=== PATIENT | female | born 1970 | race Caucasian/White ===

== ENCOUNTER 2018-02-13 11:22 | Emergency (ER) | payer OTHER ==
[2018-02-13 12:22] LABS: PLATELET COUNT 157 10^3/uL (150-400)
--- NOTE | 2018-02-13 12:43 | EDPHY ---
H & P Stated Complaint: CP last couple weeks, facial numbness and right arm pain starting today Time Seen by Provider: 02/13/18 11:53 HPI/ROS: Chief Complaint: Chest pain HPI: 47-year-old woman presenting with concerns about intermittent chest tightness she has been having for the last couple weeks. Patient is describing pain in the right upper chest. She is associated primarily with stress. It is nonradiating. At worst is about a 4/10. She followed up with primary care physician 2 days ago and declined any further testing at that time. She is considering an outpatient stress test. Patient states she bicycles usually 10 hr a week. Symptoms are not brought on by exertion. She does have increased stressors in her life. No leg pain or swelling. No recent travel. 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 No fevers or chills. No cough. No palpitations. No other infective symptoms. Pain is not pleuritic. Is not exertional. She did becomes a concerned this morning because while she was riding her bicycle she felt some pain behind her right shoulder and also some numbness in her mouth. This resolved. Currently she is symptom-free. ROS: 10 systems were reviewed and were negative except those elements noted in the HPI. PMH: Immunoglobulin deficiency Social History: No smoking, no alcohol, no recreational drug use Family History: non-contributory Physical Exam: Gen: Awake, Alert, No Distress HEENT: Nose: no rhinorrhea Eyes: PERRLA, EOMI Mouth: Moist mucosa Neck: Supple, no JVD Chest: nontender, lungs clear to auscultation Heart: S1, S2 normal, no murmur Abd: Soft, non-tender, no guarding Back: no CVA tenderness, no midline tenderness Ext: no edema, non-tender Skin: no rash Neuro: CN II-XII intact, Sensation grossly intact, Strength 5/5 in bilateral upper and lower extremities - Personal History LMP (Females 10-55): 8-14 Days Ago - Medical/Surgical History Hx Asthma: No Hx Chronic Respiratory Disease: No Hx Diabetes: No Hx Cardiac Disease: No Hx Renal Disease: No Hx Cirrhosis: No Hx Alcoholism: No Hx HIV/AIDS: No Hx Splenectomy or Spleen Trauma: No Other PMH: congenital immunue deficiency - Social History Smoking Status: Never smoked Constitutional: Initial Vital Signs Temperature (C) 36.8 C 02/13/18 11:26 Heart Rate 49 L 02/13/18 11:26 Respiratory Rate 18 02/13/18 11:26 Blood Pressure 133/73 H 02/13/18 11:26 O2 Sat (%) 98 02/13/18 11:26 O2 Delivery Mode Room Air Allergies/Adverse Reactions: cephalexin [From Keflex] Allergy (Verified 02/13/18 11:24) doxycycline Allergy (Verified 02/13/18 11:24) Sulfa (Sulfonamide Antibiotics) Allergy (Verified 02/13/18 11:24) Home Medications: Medication Instructions Recorded Famciclovir 02/13/18 Gamunex-C 1 Gram/10 ml Vial 02/13/18 Valium 02/13/18 Medical Decision Making - Diagnostics EKG Interpretation: ECG time 11:36 a.m., sinus rhythm with a rate of 50, normal axis, normal intervals, no acute ST or T-wave changes. Impression: Normal ECG. Imaging Results: Chest x-ray is negative per my interpretation. Imaging: I viewed and interpreted images myself ED Course/Re-evaluation: 47-year-old woman presenting with right-sided chest pain intermittently for the last 2 weeks. ECG is normal. Troponin is 0. Chest x-ray is negative. Perc score is 0. Wells criteria is 0. Patient does not have risk factors for coronary artery disease or PE. Symptoms are quite atypical. Troponin here is negative. Symptoms been going on daily. Plan will be for discharge with outpatient stress testing, return for any concerns. No evidence of acute cardio or respiratory ischemic or infectious process at this time. - Data Points Laboratory Results: Laboratory Results 02/13/18 11:37 02/13/18 11:37 02/13/18 02/13/18 02/13/18 11:47 11:37 11:37 WBC 4.08 10^3/uL 10^3/uL (3.80-9.50) RBC 4.74 10^6/uL 10^6/uL (4.18-5.33) Hgb 14.1 g/dL g/dL (12.6-16.3) Hct 42.5 % % (38.0-47.0) MCV 89.7 fL fL (81.5-99.8) MCH 29.7 pg pg (27.9-34.1) MCHC 33.2 g/dL g/dL (32.4-36.7) RDW 12.6 % % (11.5-15.2) Plt Count 157 10^3/uL 10^3/uL (150-400) MPV 9.9 fL fL (8.7-11.7) Neut % (Auto) 48.6 % % (39.3-74.2) Lymph % (Auto) 37.0 % % (15.0-45.0) Hanson % (Auto) 10.5 % % (4.5-13.0) Eos % (Auto) 2.7 % % (0.6-7.6) Baso % (Auto) 1.0 % % (0.3-1.7) Nucleat RBC Rel Count 0.0 % % (0.0-0.2) Absolute Neuts (auto) 1.98 10^3/uL 10^3/uL (1.70-6.50) Absolute Lymphs (auto) 1.51 10^3/uL 10^3/uL (1.00-3.00) Absolute Monos (auto) 0.43 10^3/uL 10^3/uL (0.30-0.80) Absolute Eos (auto) 0.11 10^3/uL 10^3/uL (0.03-0.40) Absolute Basos (auto) 0.04 10^3/uL 10^3/uL (0.02-0.10) Absolute Nucleated RBC 0.00 10^3/uL 10^3/uL (0-0.01) Immature Gran % 0.2 % % (0.0-1.1) Immature Gran # 0.01 10^3/uL 10^3/uL (0.00-0.10) Sodium 138 mEq/L mEq/L (135-145) Potassium 4.2 mEq/L mEq/L (3.3-5.0) Chloride 104 mEq/L mEq/L (97-110) Carbon Dioxide 26 mEq/l mEq/l (22-31) Anion Gap 8 mEq/L mEq/L (8-16) BUN 15 mg/dL mg/dL (7-23) Creatinine 0.7 mg/dL mg/dL (0.6-1.0) Estimated GFR > 60 Glucose 79 mg/dL mg/dL (70-100) Calcium 9.3 mg/dL mg/dL (8.5-10.4) POC Troponin I 0.00 ng/mL ng/mL (0.00-0.08) Point of Care Test Results: Chemistry 02/13/18 11:47 POC Troponin I 0.00 ng/mL ng/mL (0.00-0.08) Departure - Departure Disposition: Home, Routine, Self-Care Clinical Impression: Chest pain Condition: Good Instructions: Chest Pain (ED) Additional Instructions: Follow up with primary care physician in 2-3 days. Follow up with Cardiology for an outpatient stress test. Return to the emergency department for increasing chest pain, shortness of breath, fevers, chills, cough, or any other concerns. Referrals: Helga Retana MD [Primary Care Provider] - As per Instructions Dominic Real MD [Medical Doctor] - As per Instructions
[2018-02-13 13:39] VITALS: BP 124/76
--- NOTE | 2018-02-15 01:44 | CPEKG ---
Test Reason : OPEN Blood Pressure : / mmHG Vent. Rate : 050 BPM Atrial Rate : 049 BPM P-R Int : 177 ms QRS Dur : 085 ms QT Int : 478 ms P-R-T Axes : -08 024 034 degrees QTc Int : 436 ms Sinus rhythm Confirmed by Randall Valle ([id number]) on 02/15/2018 1:43:59 AM Referred By: Confirmed By:Randall Valle
== END 2018-02-13 13:41 | disposition home or self-care (01) ==
LOC: UNDOADMIN 13:26
DX: R07.9 Chest pain, unspecified (principal); R20.2 Paresthesia of skin; M79.621 Pain in right upper arm; D89.9 Disorder involving the immune mechanism, unspecified
CPT/HCPCS: 84484-PO